=== PATIENT | male | born 1960 | race Caucasian/White ===

== ENCOUNTER 2021-07-15 17:31 | Emergency (ER) | payer OTHER ==
[2021-07-15] MEDS ORDERED: Acetaminophen/HYDROcodone 325-7.5 MG Tab PO STA (18:59)
== END 2021-07-15 21:48 | disposition home or self-care (01) ==
LOC: JP.ED 17:31
DX: M54.42 Lumbago with sciatica, left side (principal); I10 Essential (primary) hypertension; E11.9 Type 2 diabetes mellitus without complications; Z79.4 Long term (current) use of insulin; Z79.899 Other long term (current) drug therapy; Z88.8 Allergy status to other drugs, medicaments and biological substances
CPT/HCPCS: 99282; 99284; A9270-GY

== ENCOUNTER 2021-07-15 22:26 | Emergency (ER) | payer OTHER ==
[2021-07-15] MEDS ORDERED: Sodium Chloride 0.9% 500 ML IV ONE (22:28)
== END 2021-07-16 00:15 | disposition home or self-care (01) ==
LOC: JP.ED 22:26
DX: M54.42 Lumbago with sciatica, left side (principal); R42 Dizziness and giddiness; R61 Generalized hyperhidrosis; I48.91 Unspecified atrial fibrillation; I10 Essential (primary) hypertension; E11.9 Type 2 diabetes mellitus without complications; Z79.01 Long term (current) use of anticoagulants; Z79.4 Long term (current) use of insulin; Z79.899 Other long term (current) drug therapy
CPT/HCPCS: 36415; 80048; 83735; 84484; 85025; 93005; 93010; 99283; 99284-25; J7040